=== PATIENT | male | born 1985 | race Caucasian/White ===

== ENCOUNTER 2020-10-05 20:09 | Emergency (ER) | payer SELFPAY ==
[~2020-10-05] VITALS: Ht 170.2 cm; Wt 109.1 kg
[2020-10-05 20:20] VITALS: TEMP 97.6
[2020-10-05 21:08] VITALS: BP 159/95; PULSE 70
== END 2020-10-05 21:10 | disposition home or self-care (01) ==
LOC: COL.ER 20:09
DX: B34.9 Viral infection, unspecified (principal); I10 Essential (primary) hypertension; Z20.828 Contact with and (suspected) exposure to other viral communicable diseases